=== PATIENT | female | born 1990 | race Caucasian/White ===

== ENCOUNTER → 2020-09-21 09:29 | Outpatient (CLI) | payer OTHER, SELFPAY ==
[2020-09-21 10:28] LABS: Hematocrit 41.9 % (37-47); Hemoglobin 14.6 g/dL (12.0-15.0); Mean Corp Hgb Conc 34.8 g/dL (32-36); Mean Corpuscular Hgb 32.4 pg (27.0-32.0); Mean Corpuscular Volume 92.9 fL (81-99); Mean Platelet Vol. 10.1 fl (6.2-12.0); Platelet Count 225 K/mm3 (150-450); RBC Distribution Width SD 41.1 fl (35.1-43.9); Red Blood Count 4.51 M/mm3 (4.2-5.4); White Blood Count 6.5 K/mm3 (4.4-11.0)
[2020-09-21 10:48] LABS: Vitamin D,25 Hydroxy 32.9 ng/mL
[2020-09-21 11:00] LABS: AST(SGOT) 18 U/L (15-37); Alanine Aminotransfer ALT/SGPT 30 U/L (13-56); Albumin, Serum 3.5 g/dL (3.2-5.0); Alkaline Phosphatase 42 U/L (45-117); Anion Gap 5 (5-15); BUN 12 mg/dL (7-18); BUN/Creat Ratio 17.5 RATIO (10-20); Calcium,Total 8.9 mg/dL (8.5-10.1); Chloride 108 mmol/L (98-107); Cholesterol 181 mg/dL (200); Creatinine, Serum 0.68 mg/dL (0.55-1.02); EST Glomerular Filtration Rate 108 mL/min (>60); Est Glom Filt Rate - Afr Amer 131 mL/min (>60); Globulin 3.5 g/dL (2.2-4.2); Glucose 89 mg/dL (74-106); High Density Lipoprotein 58 mg/dL; Sodium Level 141 mmol/L (136-145); T4 Free Direct 0.99 ng/dL (0.76-1.46); Thyroid Stim Hormone (TSH) 2.67 uIU/mL (0.358-3.74); Triglycerides 119 mg/dL; Very Low Density Lipoprotein 24 mg/dL (5-40)
== END ==
DX: Z00.00 Encounter for general adult medical examination without abnormal findings (principal); E03.9 Hypothyroidism, unspecified
CPT/HCPCS: 36415; 80053; 80061; 82306; 84439; 84443; 85027

== ENCOUNTER 2021-06-18 03:25 | Emergency (ER) | payer OTHER, SELFPAY ==
[2021-06-18 03:30] VITALS: BP 146/89; PULSE 93; RESP 12; TEMP 37.1; O2SAT 98; BMI 34.0
[2021-06-18 03:49] LABS: Absolute Lymphocyte Count 2.86 X10^3/uL (0.83-4.51); Absolute Neutrophil Count 5.1 X10^3/uL (2.0-7.7); Basophil# 0.02 X10^3/uL; Basophil% 0.2 % (0-1); Eosinophil# 0.04 X10^3/uL; Eosinophils% 0.5 % (0-5); Hematocrit 39.6 % (37-47); Hemoglobin 14.4 g/dL (12.0-15.0); Lymphocyte # 2.86 X10^3/ul (0.83-4.51); Lymphocyte % 32.9 % (19-41); Mean Corp Hgb Conc 36.4 g/dL (32-36); Mean Corpuscular Hgb 32.9 pg (27.0-32.0); Mean Corpuscular Volume 90.4 fL (81-99); Mean Platelet Vol. 9.9 fl (6.2-12.0); NRBC Flagged by Analyzer 0 % (0-5); Neutrophil # 5.07 X10^3/uL (2.7-7.7); Neutrophil % 58.3 % (47-70); Platelet Count 250 K/mm3 (150-450); RBC Distribution Width CV 11.9 % (11.6-14.6); RBC Distribution Width SD 39.5 fl (35.1-43.9); Red Blood Count 4.38 M/mm3 (4.2-5.4); White Blood Count 8.7 K/mm3 (4.4-11.0)
[2021-06-18] MEDS: 0.9% Normal Saline 1,000 ML 999 ML IV (03:54)
[2021-06-18] MEDS: Ondansetron 4 MG/2 ML Vial IV (03:54)
[2021-06-18] MEDS: Morphine 4 MG/ML Syringe IV (03:56)
[2021-06-18 04:02] LABS: AST(SGOT) 10 U/L (15-37); Alanine Aminotransfer ALT/SGPT 22 U/L (13-56); Albumin, Serum 3.7 g/dL (3.2-5.0); Alkaline Phosphatase 37 U/L (45-117); Anion Gap 5 (5-15); BUN 10 mg/dL (7-18); BUN/Creat Ratio 13.2 RATIO (10-20); Bilirubin, Direct 0.07 mg/dL (0.00-0.30); Chloride 107 mmol/L (98-107); Creatinine, Serum 0.76 mg/dL (0.55-1.02); EST Glomerular Filtration Rate 96 mL/min (>60); Est Glom Filt Rate - Afr Amer 116 mL/min (>60); Estimated Creatinine Clearance 94.32 ml/min; Globulin 3.6 g/dL (2.2-4.2); Glucose 110 mg/dL (74-106); Lipase 90 U/L (73-393); Protein, Total 7.3 g/dL (6.4-8.2); Sodium Level 138 mmol/L (136-145)
[2021-06-18 04:07] LABS: Color, Urine Yellow (Yellow); Glucose, Dipstick Normal (Normal); Ketone-Dipstick Negative (Negative); Leukocyte Esterase-Dipstick 100 /ul (Negative); Mucous, Urine 0 SEEN /hpf (<or=2+); Nitrite-Dipstick Negative (Negative); Occult Blood-Urine Negative /ul (Negative); Protein-Dipstick 15 mg/dl (Negative); Red Blood Cells-Urine 0 SEEN /hpf (0-5); Specific Gravity, Urine 1.015 (1.002-1.030); Urine Bilirubin Dipstick Negative (Negative); Urine Clarity Sl. Cloudy (Clear); Urine Urobilinogen Normal (Normal); Urine pH 6.5 (5.0 - 8.0)
[2021-06-18 04:14] LABS: White Blood Cells 5-10 SEEN /hpf (0-5)
[2021-06-18 04:15] LABS: Bacteria 2+ /hpf (None Seen); Internal QC Validated? YES +Cl - CLEAR BKGD; Pregnancy, Urine Negative Negative; Squamous Epithelial Cells - UA 0-5 SEEN /hpf (5-10)
--- NOTE | 2021-06-18 04:18 | EX.ED.DYSGE1 ---
HPI History of Present Illness Chief Complaint: Abd Pain Narrative Narrative: Patient is a 30-year-old female who states that she was sleeping when she woke around 1230/1 AM with abdominal pain. She states the pain is located mainly in the right upper quadrant and comes in a wave and is spasming in nature. She reports nausea associated with this but denies any vomiting. She denies any fevers chills or trauma. She states she has tried multiple things at home to help reduce the pain but there has been no improvement and secondary to this comes in for evaluation [facility] Medical History Hypothyroidism Home Medications cephalexin 500 mg PO TID 7 Days #21 cap 06/18/21 [Rx Last Taken Unknown] levothyroxine 75 mcg PO DAILY 06/18/21 [History Last Taken Unknown] norethindrone-ethin estradiol [Alyacen (28)] 1 tab PO DAILY 06/18/21 [History Last Taken Unknown] oxycodone-acetaminophen [Percocet] 1 tab PO Q6H PRN 3 Days #12 tab 06/18/21 [Rx Last Taken Unknown] Allergy/AdvReac Type Severity Reaction Status Date / Time amoxicillin Allergy Hives Verified 06/18/21 03:27 Penicillins [PCN] Allergy Hives Verified 06/18/21 03:27 Sulfa (Sulfonamide Allergy Hives Verified 06/18/21 03:27 Antibiotics) Surgical History (Updated 06/18/21 @ 03:28 by Luis Alfredo Cornejo) History of tonsillectomy and adenoidectomy Social History Smoking Status: Never smoker [facility] ED Constitutional Constitutional ED: Denies chills or fever(s) ENT ENT ED: Denies sore throat Cardiovascular Cardiovascular: Denies chest pain Respiratory/Chest Respiratory/Chest: Denies cough or dyspnea Gastrointestinal Gastrointestinal: Reports abdominal pain and nausea; Denies diarrhea or vomiting Genitourinary Genitourinary ED: Denies dysuria or hematuria Musculoskeletal Musculoskeletal: Denies myalgias Integumentary Denies rash Neurologic Neurologic: Denies headache(s) Hematologic/Lymphatic Hematologic/Lymphatic: Denies easy bleeding or easy bruising EXAM Physical Exam Const Vital Signs: 06/18/21 03:30 Temperature 98.8 F Temperature Source Oral Pulse Rate 93 Respiratory Rate 12 Blood Pressure 146/89 H Blood Pressure Mean 108 Pulse Ox 98 Oxygen Delivery Method Room Air Positive well nourished and well developed General Appearance ED: well developed HEENT Reports moist mucous membranes Eyes PERRL and EOMs intact bilaterally General Eye ED: Negative for scleral icterus Neck supple Resp normal respiratory effort and clear to auscultation bilaterally Cardio regular rate and regular rhythm Rate: other Other Details: Radial pulses are +2-4 bilaterally are equal and symmetric GI non-distended GI Narrative: Abdomen is soft and nondistended with hyperactive bowel sounds. There is pain with palpation in the right upper quadrant without voluntary guarding or rigidity. Negative John sign. No pulsatile mass Palpation: soft Back/Spine Back/Spine Narrative: Faint right CVA pain Extremity normal to inspection Neuro oriented x3 and CN's II-XII intact bilaterally Sensorium / Orientation: alert Motor Exam: strength 5/5 throughout Psych mental status grossly normal Skin no rashes or lesions noted MDM MDM MDM Narrative Medical decision making narrative: Patient into the ER mildly hypertensive but otherwise afebrile with a soft nonsurgical abdomen. The fact that she had salami with her dinner and then spontaneous onset of right upper quadrant pain is most consistent with biliary colic. Secondary to this elected perform basic laboratory testing. Blood work revealed no clinically significant findings such as elevation to her liver enzymes or total bilirubin. Her urine showed +2 bacteria without contamination but no red blood cells to suggest a possible kidney stone. After medication the patient reported resolution of her pain and her abdomen remained soft and nonsurgical. Therefore at this time she does have a UTI but she will be treated with antibiotics and as she does not have urosepsis or acute kidney injury there is no need for admission. Also as her history is most consistent biliary colic she will need to follow-up with her family doctor to discuss ultrasound and HIDA scan on an outpatient basis. I do not feel there is a need to have this done emergently as her pain is resolved and her labs do not reveal any clinically significant finding. Lab Data Attestation: I reviewed the patient's lab results. Labs: Laboratory Results - last 24 hr 06/18/21 06/18/21 06/18/21 03:36 03:36 03:55 WBC 8.7 RBC 4.38 Hgb 14.4 Hct 39.6 MCV 90.4 MCH 32.9 H MCHC 36.4 H RDW Std Deviation 39.5 RDW Coeff of Brianne 11.9 Plt Count 250 MPV 9.9 Immature Gran % (Auto) 0.100 Neut % (Auto) 58.3 Lymph % (Auto) 32.9 Burke % (Auto) 8.0 Eos % (Auto) 0.5 Baso % (Auto) 0.2 Absolute Neuts (auto) 5.1 Absolute Lymphs (auto) 2.86 Nucleated RBC % 0 Sodium 138 Potassium 4.0 Chloride 107 Carbon Dioxide 26.0 Anion Gap 5 BUN 10 Creatinine 0.76 Estim Creat Clear Calc 94.32 Est GFR (MDRD) Af Amer 116 Est GFR (MDRD) Non-Af 96 BUN/Creatinine Ratio 13.2 Glucose 110 H Calcium 9.0 Total Bilirubin 0.30 Direct Bilirubin 0.07 AST 10 L ALT 22 Alkaline Phosphatase 37 L Total Protein 7.3 Albumin 3.7 Globulin 3.6 Lipase 90 Urine Color Yellow Urine Clarity Sl. Cloudy Urine pH 6.5 Ur Specific [place] 1.015 Urine Protein 15 H Urine Glucose (UA) Normal Urine Ketones Negative Urine Occult Blood Negative Urine Nitrite Negative Urine Bilirubin Negative Urine Urobilinogen Normal Ur Leukocyte Esterase 100 H Urine RBC 0 SEEN Urine WBC 5-10 SEEN Ur Squamous Epith Cells 0-5 SEEN Urine Bacteria 2+ Urine Mucus 0 SEEN Urine Test Negative Discharge Plan Triage Chief Complaint: Abd Pain ED Provider: Thomas Kohler Dx/Rx/DC Orders Clinical Impression: Biliary colic, UTI (urinary tract infection) Instructions: Urinary Tract Infections in Women, ED Abdominal Pain Gallstone Poss Prescriptions: New cephalexin 500 mg capsule 500 mg PO TID 7 Days Qty: 21 RF: 0 oxycodone-acetaminophen [Percocet] 5-325 mg tablet 1 tab PO Q6H PRN (Reason: pain) 3 Days Qty: 12 RF: 0 No Action levothyroxine 75 mcg tablet 75 mcg PO DAILY RF: 0 Alyacen (28) 1-35 mg-mcg tablet 1 tab PO DAILY RF: 0 Referrals: SIMON HUTCHINS [Other] Activity Restrictions/Additional Instructions: Please eat a bland diet as well as more frequent smaller meals to reduce chances of a recurrent gallbladder attack. Follow-up with your family doctor to discuss outpatient ultrasound and/or HIDA scan to further evaluate your gallbladder as well and return to the ER should you have any further concerns Disposition Disposition: Home, Self Care
[2021-06-18] MEDS: Ceftriaxone 1 GM/50 ML BAG IV (04:36)
[2021-06-18] MEDS: HYDROmorphone 1 MG/ML Syringe IV (04:45)
[2021-06-18 05:21] VITALS: BP 109/74; PULSE 68; RESP 16; O2SAT 97
== END 2021-06-18 05:24 | disposition home or self-care (01) ==
PROVIDERS: Emergency Provider Emergency Medicine; Visit Provider Emergency Medicine
DX: N39.0 Urinary tract infection, site not specified (principal); K80.50 Calculus of bile duct without cholangitis or cholecystitis without obstruction; E03.9 Hypothyroidism, unspecified; Z79.899 Other long term (current) drug therapy
CPT/HCPCS: 80048; 80076; 81001; 81025; 83690; 85025; 87086; 87088; 96361; 96365; 96375; 99285; J7030; J2405